=== PATIENT | male | born 1960 | race Caucasian/White ===

== ENCOUNTER 2020-01-25 11:48 | Emergency (ER) | payer BC, SELFPAY ==
[2020-01-25 12:20] VITALS: BP 149/87; PULSE 95; RESP 20; TEMP 37.1; O2SAT 98
--- NOTE | 2020-01-25 12:56 | ED.SKABFB ---
HPI - Skin/Abscess/Foreign Bdy General Chief complaint: Skin/Abscess/Foreign Body Stated complaint: Rash Time Seen by Provider: 01/25/20 12:50 Source: patient and RN notes reviewed Mode of arrival: ambulatory Limitations: no limitations History of Present Illness HPI narrative: 52-year-old male presents with concern for red, tender, swollen area on the front of his right lower leg. Reports symptoms started approximately 3 days ago after he scratched bug bites. Reports he put Neosporin on the area, denies any other interventions. MD complaint: other (Cellulitis) Related Data Home Medications Medication Instructions Recorded Confirmed allopurinol 300 mg PO DAILY 01/25/20 01/25/20 amlodipine-benazepril 1 cap PO DAILY 01/25/20 01/25/20 atorvastatin 40 mg PO DAILY 01/25/20 01/25/20 metformin 500 mg PO BID 01/25/20 01/25/20 metoprolol succinate 50 mg PO DAILY 01/25/20 01/25/20 omeprazole 40 mg PO DAILY 01/25/20 01/25/20 Allergies Allergy/AdvReac Type Severity Reaction Status Date / Time codeine Allergy Mild Itching Verified 01/25/20 12:31 Review of Systems Review of Systems: Narrative: CONSTITUTIONAL: Denies malaise, chills, sweats, or fever. CARDIOVASCULAR: Denies chest pain, palpitations RESPIRATORY: Denies cough or dyspnea. SKIN: Reports redness, swelling, tenderness the front of the right leg MUSCULOSKELETAL: Denies myalgia. All systems reviewed & are unremarkable except as noted in HPI and below PMFSH Comments At time of signature, agree with nursing past medical, surgical, social and family history. There is no relevant family history pertinent to the presenting complaint Exam Narrative: Exam Narrative: GENERAL: Well-appearing, well-nourished, and in no acute distress. HEAD: Normocephalic EYES: PERRLA, conjunctivae clear ENT: Mucous membranes moist. NECK: Supple CHEST: No respiratory distress. Speaks in full sentences. HEART: Regular rate and rhythm. EXTREMITIES: Right lower leg has normal range of motion, normal strength and sensation. SKIN: Warm, dry. Induration, erythema, warmth noted to the anterior right lower leg consistent with cellulitis. No posterior leg erythema, warmth, redness, tenderness NEURO: Alert and oriented x3. PSYCH: Normal mood and affect Course Course Emergency Course: Patient is aware of diagnosis, understands and agrees to treatment plan. Anticipatory guidance given. Patient agrees to follow-up as directed and is aware of reasons to seek care at the emergency department. Portions of this record may have been created with voice recognition software Vital Signs Vital signs: Vital Signs Temperature 98.7 F 01/25/20 12:20 Pulse Rate 95 01/25/20 12:20 Respiratory Rate 20 01/25/20 12:20 Blood Pressure 149/87 H 01/25/20 12:20 Pulse Oximetry 98 01/25/20 12:20 Temperature 98.7 F 01/25/20 12:20 Pulse Rate 95 01/25/20 12:20 Respiratory Rate 20 01/25/20 12:20 Blood Pressure 149/87 H 01/25/20 12:20 Pulse Oximetry 98 01/25/20 12:20 Reviewed. Patient's history of hypertension MDM - Skin/Abscess/Foreign Bdy MDM Narrative Medical decision making narrative: Exam findings show no acute concerns or changes; patient is non-toxic appearing and is in no distress. Patient is appropriate for outpatient treatment and follow-up. Differential Diagnosis Differential diagnosis: Likely abscess of skin or subcutaneous tissue, viral exanthem, urticaria, cellulitis, eczema, impetigo and contact dermatitis Critical Care Time Critical Care Time Critical Care Time: No Discharge Plan Discharge Clinical Impression: Cellulitis Qualifiers: Site of cellulitis: extremity Site of cellulitis of extremity: lower extremity Laterality: right Qualified Code(s): L03.115 - Cellulitis of right lower limb Patient Disposition: Home, Self-Care Condition: Stable Instructions: Antibiotic Form, Cellulitis (ED) Additional Instructions: Please follow up with your Primary Care Do
== END 2020-01-25 13:06 | disposition home or self-care (01) ==
PROVIDERS: Emergency Provider Nurse Practitioner
DX: L03.115 Cellulitis of right lower limb (principal)
CPT/HCPCS: 99213; G0463

== ENCOUNTER 2021-05-01 10:49 | Outpatient (CLI) | payer OTHER, SELFPAY ==
--- NOTE | ~2021-05-01 | XR_ITS ---
XR thoracic spine 3V DATE: 05/01/2021 11:28 INDICATION: Mid and low back pain for 2 months TECHNIQUE: AP, lateral, swimmer views COMPARISON: None FINDINGS: No fracture or dislocation or bone destruction. The thoracic pedicles are intact. There is mild degenerative spurring primarily in the lower thoracic spine. IMPRESSION: Mild degenerative change Reviewed, dictated and finalized at location A. IMPRESSION: Mild degenerative change
--- NOTE | ~2021-05-01 | XR_ITS ---
XR lumbar spine 2-3V DATE: 05/01/2021 11:29 INDICATION: Mid and low back pain TECHNIQUE: AP, lateral, coned lateral lumbosacral views COMPARISON: None FINDINGS: There is normal alignment of the lumbar spine. No fracture or bone destruction or spondylol isthesis. The lumbar pedicles are intact. There is moderate degenerative disc disease at L1-2, L2-3 and mild degenerative disease at L3-4 and L 4-5. Moderately severe degenerative disease at L5-S1. The sacroiliac joints are intact. Status post bilateral total hip arthroplasty.. IMPRESSION: Multilevel degenerative disc disease Status post bilateral total hip arthroplasty Reviewed, dictated and finalized at location A.
== END 2021-05-01 10:50 | disposition home or self-care (01) ==
LOC: CHSIMG 10:53
PROVIDERS: PCP Internal Medicine; Visit Provider Internal Medicine
DX: M54.6 Pain in thoracic spine (principal); M54.50 Low back pain, unspecified
CPT/HCPCS: 72072; 72100

== ENCOUNTER 2021-05-11 10:35 | Outpatient (RCR) | payer OTHER, SELFPAY ==
--- NOTE | 2021-05-11 12:05 | PTOPEVAL ---
Thank you for referring Ba Loaiza to [facility].? The patient is scheduled to be seen for therapy? __2__x/week for 12 visits. Please review, sign, date and return this plan of care JUVENAL. I agree with and certify that the following plan of care is medically necessary. Referring Physician Date Admitting Provider: Attending Provider: Cara Kendall MD Referring Provider: *PT Outpatient Evaluation Start: 05/11/21 11:02 Freq: Status: Active Protocol: Document 05/11/21 11:03 ARSLAN (Rec: 05/11/21 12:04 ARSLAN [id number]) Therapy Assessment Status Assessment Status Assessment Status Evaluation Outpatient Past Medical History Cardiovascular History Hx Hypercholesterolemia Yes Hx Hypertension Yes Gastrointestinal History Hx Gastroesophageal Reflux Disease Yes Musculoskeletal History Hx Gout Yes Hx Joint Replacement Yes: TIFFANI THR Hx Orthopedic Surgery Yes: TIFFANI ROTATOR CUFFS Endocrine History Hx Diabetes Yes Evaluation Information Problem Diagnosis mid and low back pain Onset 03/11/21 Subjective Information Pt. reports that he has had on Query Text:As Reported By Patient/ /off back pain for awhile. He Family reports his pain is located across the low back and into the shoulder blades. He states that all small standing activities will increase his pain including activities such as raking and sweeping. He reports that pain will wake him at night on occassion. He reports that he can only stand for about 30 minutes before having to sit due to pain. He reports that his goal is to decrease pain and be able to stand longer. Diagnostic Tests X-Rays For This Problem Yes Prior Level of Function Activity Level (Last 3 Months) Occupation disabled Hand Dominance Right Activity of Daily Living Ability Independent Indoor/Home Mobility Independent Community Mobility Independent Stairs Ability Independent Functional Cognition (Planning, Shopping Independent , Taking Medications) Cooking Yes Cleaning Yes Laundry Yes Shopping Yes Driving Yes Pain Assessment Timing of Pain Assessme
--- NOTE | 2021-06-11 07:22 | PTOPEVAL ---
Thank you for referring Ba Loaiza to [facility]. Please review, sign, date and return this plan of care JUVENAL. I agree with and certify that the following plan of care is medically necessary. Referring Physician Date Admitting Provider: Attending Provider: Cara Kendall MD Referring Provider: *PT Outpatient Evaluation Start: 05/11/21 11:02 Freq: Status: Active Protocol: Document 06/09/21 10:50 ARSLAN (Rec: 06/11/21 07:21 [email or web address] [id number]) Therapy Assessment Status Assessment Status Assessment Status Progress Outpatient Past Medical History Cardiovascular History Hx Hypercholesterolemia Yes Hx Hypertension Yes Gastrointestinal History Hx Gastroesophageal Reflux Disease Yes Musculoskeletal History Hx Gout Yes Hx Joint Replacement Yes: TIFFANI THR Hx Orthopedic Surgery Yes: TIFFANI ROTATOR CUFFS Endocrine History Hx Diabetes Yes Evaluation Information Problem Diagnosis mid and low back pain Onset 03/11/21 Subjective Information Pt. reports that he still has Query Text:As Reported By Patient/ fluctuating pain. He reports Family that he is more concious of his posture. He reports that any activity that requires him to be in one position can trigger both low and mid back pain. He reports that he continues to exercise at home despite pain. He reports that he is seeing improvements in strength and is doing more activity at home. Pain Assessment Timing of Pain Assessment Timing of Pain Assessment Pre-Treatment Pain Scale Pain Scale Used Numeric (1 - 10) Self Report Pain Assessment Lower Back Reported Pain Level 6 Pain Score Pain Score 6: Self Report Interventions Used Interventions Used By Clinicians Electrical Stimulation, Exercise,Heat Cervical and Lumbar ROM Lumbar ROM Lumbar Flexion Active Ankle Query Text:Hands to: Lumbar Extension (0-40) 10 Query Text:Active in Degrees Lumbar Lateral Flexion Right (0-40) 30 Query Text:Active in Degrees Lumbar Lateral Flexion Left (0-40) 30 Query Text:Active in Degrees Lateral Rotation Right (0-45) 35 Query Text:Active in Degrees Lateral Rotation Left (0-45) 35 Query Text:Active in Degrees Lower Extremity Muscle Strength Testing General Lower Extremity Strength Gross Lower Extremity S
--- NOTE | 2021-06-23 12:02 | PTOPEVAL ---
Thank you for referring Ba Loaiza to [facility].? The patient is scheduled to be seen for therapy? __2__x/week for 12 visits. Please review, sign, date and return this plan of care JUVENAL. I agree with and certify that the following plan of care is medically necessary. Referring Physician Date Admitting Provider: Attending Provider: Cara Kendall MD Referring Provider: *PT Outpatient Evaluation Start: 05/11/21 11:02 Freq: Status: Active Protocol: Document 06/23/21 11:10 ARSLAN (Rec: 06/23/21 12:00 [email or web address] [id number]) Therapy Assessment Status Assessment Status Assessment Status Discharge Outpatient Past Medical History Cardiovascular History Hx Hypercholesterolemia Yes Hx Hypertension Yes Gastrointestinal History Hx Gastroesophageal Reflux Disease Yes Musculoskeletal History Hx Gout Yes Hx Joint Replacement Yes: TIFFANI THR Hx Orthopedic Surgery Yes: TIFFANI ROTATOR CUFFS Endocrine History Hx Diabetes Yes Evaluation Information Problem Diagnosis mid and low back pain Onset 03/11/21 Subjective Information Pt. reports that he still gets Query Text:As Reported By Patient/ back pain anytime he has to Family walk for 10 minutes he will noticed increased back pain. He states that he still gets pain with bending forward to sweep the floor. He states that he will return to the doctor tomorrow to discuss his remaining pain. Pain Assessment Timing of Pain Assessment Timing of Pain Assessment Pre-Treatment Pain Scale Pain Scale Used Numeric (1 - 10) Self Report Pain Assessment Lower Back Reported Pain Level 7 Pain Description Aching Lowest Pain Intensity 5 Greatest Pain Intensity 9 Pain Aggravating Factors Exercise/Activity,Lifting, Prolonged Position,Walking, Weight Bearing/Standing Pain Score Pain Score 7: Self Report Interventions Used Interventions Used By Clinicians Activity or ADL's,Electrical Stimulation,Exercise,Heat Cervical and Lumbar ROM Lumbar ROM Lumbar Flexion Active Floor Query Text:Hands to: Lumbar Extension (0-40) 20 Query Text:Active in Degrees Lumbar Lateral Flexion Right (0-40) 30 Query Text:Active in Degrees Lumbar Lateral Flexion Left (0-40) 30 Query Text:Active in Degrees Lower Extremity Muscle Strength Testing General Lower Extremity St
--- NOTE | 2021-07-28 14:18 | PTOPEVAL ---
Thank you for referring Ba Loaiza to [facility].? The patient is scheduled to be seen for therapy? ____x/week for ___ weeks. Please review, sign, date and return this plan of care JUVENAL. I agree with and certify that the following plan of care is medically necessary. Referring Physician Date Admitting Provider: Attending Provider: Cara Kendall MD Referring Provider: *PT Outpatient Evaluation Start: 05/11/21 11:02 Freq: Status: Discharge Protocol: Document 06/23/21 11:10 [email or web address] (Rec: 06/23/21 12:00 ARSLAN [email or web address]) Therapy Assessment Status Assessment Status Assessment Status Discharge Outpatient Past Medical History Cardiovascular History Hx Hypercholesterolemia Yes Hx Hypertension Yes Gastrointestinal History Hx Gastroesophageal Reflux Disease Yes Musculoskeletal History Hx Gout Yes Hx Joint Replacement Yes: TIFFANI THR Hx Orthopedic Surgery Yes: TIFFANI ROTATOR CUFFS Endocrine History Hx Diabetes Yes Evaluation Information Problem Diagnosis mid and low back pain Onset 03/11/21 Subjective Information Pt. reports that he still gets Query Text:As Reported By Patient/ back pain anytime he has to Family walk for 10 minutes he will noticed increased back pain. He states that he still gets pain with bending forward to sweep the floor. He states that he will return to the doctor tomorrow to discuss his remaining pain. Pain Assessment Timing of Pain Assessment Timing of Pain Assessment Pre-Treatment Pain Scale Pain Scale Used Numeric (1 - 10) Self Report Pain Assessment Lower Back Reported Pain Level 7 Pain Description Aching Lowest Pain Intensity 5 Greatest Pain Intensity 9 Pain Aggravating Factors Exercise/Activity,Lifting, Prolonged Position,Walking, Weight Bearing/Standing Pain Score Pain Score 7: Self Report Interventions Used Interventions Used By Clinicians Activity or ADL's,Electrical Stimulation,Exercise,Heat Cervical and Lumbar ROM Lumbar ROM Lumbar Flexion Active Floor Query Text:Hands to: Lumbar Extension (0-40) 20 Query Text:Active in Degrees Lumbar Lateral Flexion Right (0-40) 30 Query Text:Active in Degrees Lumbar Lateral Flexion Left (0-40) 30 Query Text:Active in Degrees Lower Extremity Muscle Strength Testing General Lower Extremity Str
== END 2021-06-23 08:43 | disposition home or self-care (01) ==
LOC: CHSPT 10:35
PROVIDERS: PCP Internal Medicine; Visit Provider Internal Medicine
DX: M54.6 Pain in thoracic spine (principal); M54.50 Low back pain, unspecified
CPT/HCPCS: 97014; 97110; 97140; 97161; G0283

== ENCOUNTER 2021-07-07 08:36 | Outpatient (CLI) | payer OTHER, SELFPAY ==
--- NOTE | ~2021-07-07 | MR_ITS ---
EXAMINATION: MR lumbar spine wo con EXAM DATE: 07/07/2021 10:18 INDICATION: Low back pain extending down right leg. TECHNIQUE: Multi-sequential, multiplanar MR images of the lumbar spine were obtained without contrast . Sagittal T1, T2, T2 fat saturation images. Axial T2 weighted images. There is no prior study for comparison. FINDINGS: There is moderate disc disease at L5-S1, mild at the other lumbar levels. The conus medulla ris terminates at the T12-L1 level and has normal signal intensity and morphology. There is 2 mm retr olisthesis L4 on L5. Mild diffuse loss of vertebral body height. Scattered vertebral body hemangiomat a. Endplate degenerative signal change L5-S1. Paraspinal soft tissue is unremarkable. Level by level evaluation: T12-L1: Axial images only. Disc confined to its margin. Facet arthropathy: Mild facet arthropathy.. Neural foraminal stenosis: No stenosis. Central canal stenosis: No stenosis. L1-L2: Disc does not extend beyond the endplate margin. Facet arthropathy: Mild to moderate. Neural foraminal stenosis: No stenosis. Central canal stenosis: No stenosis. L2-L3: There is a mild diffuse disc bulge. Facet arthropathy: Moderate. Neural foraminal stenosis: Minimal bilateral. Central canal stenosis: No stenosis. L3-L4: There is a mild diffuse disc bulge. Facet arthropathy: Moderate. Neural foraminal stenosis: Mild to moderate bilateral. Central canal stenosis: Mild. L4-L5: There is a mild to moderate diffuse disc bulge. Facet arthropathy: Moderate. Neural foraminal stenosis: Moderate bilateral, right more than left. Central canal stenosis: Mild. L5-S1: There is a mild to moderate diffuse disc bulge. Facet arthropathy: Mild to moderate. Neural foraminal stenosis: Moderate left, mild to moderate right. Central canal stenosis: No stenosis. IMPRESSION: 1. L4-5 right neural foramina most narrowed on exam. 2. L5-S1 moderate disc disease. 3. Less spondylosis other levels. Reviewed, dictated and finalized at location A. PACKER OR APPLIER
== END 2021-07-07 08:37 | disposition home or self-care (01) ==
LOC: CHSIMG 08:36
PROVIDERS: PCP Internal Medicine; Visit Provider Internal Medicine
DX: M54.50 Low back pain, unspecified (principal)
CPT/HCPCS: 72148

== ENCOUNTER 2024-09-21 10:59 | Outpatient (CLI) | payer MEDICARE, SELFPAY ==
--- NOTE | ~2024-09-21 | XR_ITS ---
XR shoulder RT min 2V 09/21/2024 11:23 Indication: Right shoulder pain after fall Procedure: 4 views right shoulder Comparison: No prior studies for comparison. Findings: There are 2 anchors in the right humeral head at the greater tuberosity. There is moderate- severe polyarticular osteoarthritis. There is narrowing of the subacromial space, suspicious for rota tor cuff tear. Osteopenia. No acute fracture. Impression: 1: Moderate-severe polyarticular osteoarthritis of the right shoulder with possible rotator cuff tear . Consider correlation with MRI. Reviewed, dictated and finalized at location A. Impression: 1: Moderate-severe polyarticular osteoarthritis of the right shoulder with poss ible rotator cuff tear. Consider correlation with MRI.
--- OUTSIDE RECORDS SUMMARY | 2024-09-21 12:07 | XMS_ITS | Clinical Summary ---
Author Organization [facility] Address [facility] [place] [address] Care Team Providers Care Diamond Sizer And Grader Name Role Phone Cara Kendall MD Primary Care Provider [phone] Allergies Active Allergy Reactions Criticality Noted Date Comments Codedonna Hivba 08/07/2021 Medications allopurinol 300 MG tablet Take 300 mg by mouth daily. Active losartan 100 MG tablet Take 100 mg by mouth daily. Active metFORMIN 500 MG tablet Take 500 mg by mouth 4 (four) times a day. Active carvedilol 12.5 MG tablet Take 12.5 mg by mouth 2 (two) times daily. Active pantoprazole EC 40 MG tablet Take 40 mg by mouth daily. Active atorvastatin 40 MG tablet Take 40 mg by mouth nightly at bedtime. Active diazePAM 10 MG tablet TAKE 1 TABLET BY MOUTH FOR 1 DOSE 1 HOUR PRIOR TO PROCEDURE 2 Active Active Problems Problem Noted Date Diagnosed Date Lumbar radiculopathy 08/07/2021 Immunizations Name Administration Dates Next Due Influenza Adult (Generic) 07/16/2017 PFIZER COVID-19 (ORIGINAL FO RMULATION, PURPLE CAP) mRNA, LNP-S, PF, 30 MCG/0.3 ML DOSE 10/15/2021 Pneumococcal (Prevnar 13) 07/16/2017 Shingrix 08/28/2020,03/12/2020 Tdap (Generic) 07/16/2017 Family History Medical History Relation Comments Hypertension Brother COPD Father Hypertension Mother Hypertension Sister Relation Status Comments Brother Father Mother Sister Social History Tobacco Use Types Packs/Day Years Used Date Smoking Tobacco: Never Smokeless Tobacco: Never Alcohol Use Standard Drinks/Week Comments Yes 0 (1 standard drink = 0.6 oz pur e alcohol) social consumption Education Answer Date Recorded What is the highest level of school you have completed or the highest degree you have received? 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 Gender Identity Not on file Sexual Orientation Not on file Last Filed Vital Signs Vital Sign Reading Time Taken Comments Blood Pressure 137/88 09/15/2021 10:34 AM CDT Pulse 85 09/15/2021 10:34 AM CDT Temperature 36.7 C (98.1 F) 09/15/2021 9:47 AM CDT Respiratory Rate 20 09/15/2021 10:3 4 AM CDT Oxygen Saturation 96% 09/15/2021 10: 34 AM CDT Inhaled Oxygen Concentration - - Weight 120.3 kg (265 lb 3.4 oz) 09/15/2021 9:47 AM CDT Height 167.6 cm (5' 6 ) 09/15/2021 9:47 AM CDT Body Mass Index 42.81 09/15/2021 9:47 AM CDT Plan of Treatment Health Maintenance Due Date Last Done Comments Colorectal Cancer Screening Colonoscopy (10 Years) 1962 Annual Physical 1965 Hepatitis C 01/14/1980 RSV Immunization or 60+ Years (1 - Risk 60-74 years 1-dose series) 2022 COVID-19 Vaccine (3 - 2023-2 5 season) 2024 10/15/2021, 09/22/2020 Influenza Adult (#1) 2024 07/16/2017 DTaP, Tdap and Td Vaccines ( 2 - Td or Tdap) 07/16/2027 07/16/2017 Pneumococcal Vaccine: Pediatrics (0 to 5 Years) and At-Risk Patients (6 to 64 Years) Aged Out 07/16/2017 No longer eligible b ased on patient's age to complete this topic Zoster Vaccines Completed 08/28/2020, 03/12/2020 Meningococcal B Vaccine Aged Out No l onger eligible based on patient's age to complete this topic Meningococcal Vaccine Aged Out No eduardo helen eligible based on patient's age to complete this topic RSV Immunizations Under 20 Months Aged Out No longer eligible b ased on patient's age to complete this topic Insurance [employer] Care Teams Diamond Sizer And Grader Relationship Specialty Start Date End Date Cara Kendall MD PCP - General INTERNAL MEDICINE 08/07/21
== END 2024-09-21 11:00 | disposition home or self-care (01) ==
LOC: CHSIMG 11:06
PROVIDERS: PCP Internal Medicine; Visit Provider Internal Medicine
DX: S49.91XA Unspecified injury of right shoulder and upper arm, initial encounter (principal); M19.011 Primary osteoarthritis, right shoulder
CPT/HCPCS: 73030

== ENCOUNTER 2024-09-27 08:53 | Outpatient (CLI) | payer MEDICARE, SELFPAY ==
--- NOTE | ~2024-09-27 | MR_ITS ---
MRI of the right shoulder Technique: Axial proton-density fat-sat images, coronal proton density fat-sat and T2 fat-sat images, and sagittal T1-weighted and T2 fat-sat images were acquired. Clinical History: Pain Findings: There is moderate to advanced AC joint degenerative change, though a fracture change at the distal clavicle in particular. Small fluid present in the joint space. Coracoclavicular, coracoacrom ial, and coracohumeral ligaments are probably intact. There are complete, full-thickness tears of the entirety of the supraspinatus and infraspinatus tendo ns. Fluid-filled gap measures approximately 4.9 x 4.9 cm. Subscapularis tendon demonstrates mild tend inosis, but is probably intact. Suspected complete rupture of the proximal tendon of the long head of the biceps, likely retracted into the bicipital groove. There are degenerative attenuation of the superior labrum. Degenerative tearing probably extends the anterior superior and posterior superior portions. Humeral head is high riding. There is diffuse chondral thinning of the humeral head. Inferior glenohu meral ligament is intact. Probable mild fatty atrophy of the infraspinatus muscle belly. Suspected pr ior rotator cuff repair surgery with susceptibility artifact at the humeral head. Impression: Massive, full-thickness rotator cuff tear of the supraspinatus and infraspinatus tendons, as detailed above. Mild fatty atrophy of the infraspinatus muscle belly. Probable complete rupture of the proximal biceps tendon. Degenerative tear of the labrum. High riding humeral head with moderate to advanced AC joint degenerative change. Reviewed, dictated and finalized at location . Impression: Massive, full-thickness rotator cuff tear of the supraspinatus and infraspinatu s tendons, as detailed above. Mild fatty atrophy of the infraspinatus muscle be lly. Probable complete rupture of the proximal biceps tendon. Degenerative tear of the labrum. High riding humeral head with moderate to advanced AC joint degenerative change .
--- OUTSIDE RECORDS SUMMARY | 2024-09-27 09:04 | XMS_ITS | Clinical Summary ---
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
== END 2024-09-27 08:54 | disposition home or self-care (01) ==
PROVIDERS: PCP Internal Medicine; Visit Provider Internal Medicine
DX: M25.511 Pain in right shoulder (principal); M75.121 Complete rotator cuff tear or rupture of right shoulder, not specified as traumatic; S43.491A Other sprain of right shoulder joint, initial encounter; M19.011 Primary osteoarthritis, right shoulder
CPT/HCPCS: 73221

== ENCOUNTER 2025-04-30 08:38 | Outpatient (CLI) | payer MEDICARE, SELFPAY ==
--- NOTE | ~2025-04-30 | US_ITS ---
ULTRASOUND ABDOMEN LIMITED (RIGHT UPPER QUADRANT) Clinical History: elevated liver enzymes Comparison: None Technique: Right upper quadrant sonography Findings: Liver: Enlarged. Echogenic. No intrahepatic biliary ductal dilatation. Normal hepatopedal flow main portal vein. Common Duct: Normal caliber. 4 mm. Gallbladder: No stones. No wall thickening. No pericholecystic fluid. Pancreas: Unremarkable. IMPRESSION: 1. Hepatomegaly, with steatosis and/or hepatocellular disease. 2. No acute abnormality. Reviewed, dictated and finalized at location R. TENNIS COACH
== END 2025-04-30 08:39 | disposition home or self-care (01) ==
PROVIDERS: PCP Internal Medicine; Visit Provider Internal Medicine
DX: R74.01 Elevation of levels of liver transaminase levels (principal); R16.0 Hepatomegaly, not elsewhere classified
CPT/HCPCS: 76705